=== PATIENT | male | born 1945 | race Caucasian/White ===

== ENCOUNTER 2019-06-28 02:19 | Outpatient (CLI) | payer MEDICARE, BC, SELFPAY ==
[2019-06-28 11:36] LABS: Anion Gap 11.1 mmol/L (3-11); BUN 16 mg/dL (7-18); CO2 26.9 mmol/L (21.0-32.0); CREATININE 1.05 mg/dL (0.70-1.30); Calcium 8.6 mg/dL (8.5-10.1); Chloride 104 mmol/L (98-107); Glucose 112 mg/dL (70-100); Sodium 142 mmol/L (136-145)
== END 2019-06-28 02:39 ==
PROVIDERS: PCP Family Medicine; Visit Provider Family Medicine
DX: I10 Essential (primary) hypertension (principal)
CPT/HCPCS: 36415; 80048

== ENCOUNTER 2020-07-03 10:10 | Outpatient (CLI) | payer MEDICARE, BC, SELFPAY ==
[2020-07-03 12:50] LABS: Anion Gap 7.8 mmol/L (3-11); BUN 18 mg/dL (7-18); CO2 29.2 mmol/L (21.0-32.0); CREATININE 0.97 mg/dL (0.70-1.30); Calcium 9.1 mg/dL (8.5-10.1); Calculated LDL 134 mg/dL (<100); Chloride 104 mmol/L (98-107); Cholesterol 200 mg/dL (<200); Glucose 116 mg/dL (74-106); HDL Cholesterol 47 mg/dL (40-60); Potassium 4.4 mmol/L (3.5-5.1); Sodium 141 mmol/L (136-145); Triglyceride 96 mg/dL (<150)
== END 2020-07-03 10:30 ==
PROVIDERS: PCP Nurse Practitioner; Visit Provider Family Medicine
DX: I10 Essential (primary) hypertension (principal); E66.9 Obesity, unspecified
CPT/HCPCS: 36415; 80048; 80061

== ENCOUNTER 2020-12-25 01:58 | Outpatient (CLI) | payer MEDICARE, BC, SELFPAY ==
[2020-12-25 12:45] LABS: HCT 46.2 % (40.0-50.0); HGB 15.5 g/dL (13.5-17.5); MCH 32.2 pg (27.0-33.0); MCHC 33.5 % (32.0-36.0); MCV 95.9 fL (80-95); MPV 10.4 fL (8.0-11.0); Platelet Count 241 10^3/uL (130-400); RBC 4.82 10^6/uL (4.36-5.78); RDW 11.6 % (11.8-14.1); RDW-SD 40.7 fL; WBC 6.01 10^3/uL (4.4-10.8)
[2020-12-25 13:00] LABS: Iron 48 ug/dL (65-175)
[2020-12-25 13:12] LABS: Ferritin 247 ng/mL (26-388)
== END 2020-12-25 01:59 | disposition home or self-care (01) ==
LOC: LOS 01:58
DX: D50.9 Iron deficiency anemia, unspecified (principal); R42 Dizziness and giddiness
CPT/HCPCS: 36415; 85027; 82728; 83540

== ENCOUNTER 2021-09-28 13:25 | Outpatient (REF) | payer MEDICARE, BC, SELFPAY ==
[2021-09-28 13:23] LABS: ALT 27 U/L (16-63); AST 19 U/L (15-37); Albumin 3.6 g/dL (3.4-5.0); Alkaline Phosphatase 68 U/L (46-116); Anion Gap 8.4 mmol/L (3-11); BUN 22 mg/dL (7-18); Bilirubin, Total 0.8 mg/dL (0.2-1.0); CO2 27.6 mmol/L (21.0-32.0); Calcium 8.9 mg/dL (8.5-10.1); Chloride 102 mmol/L (98-107); Ferritin 198 ng/mL (26-388); Glucose 111 mg/dL (74-106); Sodium 138 mmol/L (136-145); Total Protein 7.3 g/dL (6.4-8.2)
[2021-09-28 13:41] LABS: Iron 106 ug/dL (65-175)
[2021-09-28 22:40] LABS: PSA, Screening 0.9 ng/mL (0.0-6.5)
== END 2021-09-28 13:26 | disposition home or self-care (01) ==
LOC: LBN 13:25
DX: I10 Essential (primary) hypertension (principal); E61.1 Iron deficiency; E63.8 Other specified nutritional deficiencies; Z12.5 Encounter for screening for malignant neoplasm of prostate; Z80.42 Family history of malignant neoplasm of prostate
CPT/HCPCS: 80053; 84153; 82728; 83540

== ENCOUNTER 2022-11-07 08:28 | Outpatient (CLI) | payer MEDICARE, SELFPAY ==
[2022-11-07 12:19] LABS: HCT 46.1 % (40.0-50.0); HGB 15.7 g/dL (13.5-17.5); MCH 32.4 pg (27.0-33.0); MCHC 34.1 % (32.0-36.0); MCV 95 fL (80-95); Platelet Count 239 10^3/uL (130-400); RBC 4.84 10^6/uL (4.36-5.78); RDW 12.3 % (11.8-14.1); RDW-SD 43.7 fL
[2022-11-07 12:26] LABS: Iron 69 ug/dL (65-175)
[2022-11-07 12:33] LABS: Anion Gap 8.2 mmol/L (3-11); BUN 16 mg/dL (7-18); CO2 26.8 mmol/L (21.0-32.0); CREATININE 1.1 mg/dL (0.70-1.30); Calcium 9.1 mg/dL (8.5-10.1); Chloride 103 mmol/L (98-107); Estimated GFR 69.57 (mL/min/1.73m2); Glucose 113 mg/dL (74-106); Potassium 4.1 mmol/L (3.5-5.1); Sodium 138 mmol/L (136-145)
[2022-11-07 15:23] LABS: Hemoglobin A1C 5.7 % (<5.7)
[2022-11-07 15:58] LABS: Lab Add On Test DONE
== END 2022-11-07 08:29 | disposition home or self-care (01) ==
LOC: LOS 08:29
PROVIDERS: PCP Nurse Practitioner Family; Referring Provider Nurse Practitioner Family; Visit Provider Nurse Practitioner Family
DX: E61.1 Iron deficiency (principal); I10 Essential (primary) hypertension; R73.9 Hyperglycemia, unspecified
CPT/HCPCS: 36415; 80048; 85027; 83036; 83540

== ENCOUNTER 2023-09-10 23:42 | Observation (INO) | payer MEDICARE, SELFPAY ==
[2023-09-10 23:45] VITALS: BP 172/94; PULSE 73; RESP 18; TEMP 36.4; O2SAT 97
--- NOTE | 2023-09-10 23:45 | RT.EKG_ITS ---
APPROVED REPORT Exam: Resting ECG Reason for Exam: abd pain Patient Location: E HR:74 bpm ECG Measurements Heart Rate 74 AXIS TX 200 P 51 QRSd 97 QRS 51 QT 392 T 40 QTc 435 Conclusion Sinus rhythm 74 normal axis no acute ischemic change
[2023-09-10 23:47] VITALS: O2SAT 96
[2023-09-10 23:48] VITALS: BP 172/94; PULSE 75; O2SAT 97
[2023-09-10 23:50] VITALS: PULSE 73; RESP 11; O2SAT 96
[2023-09-11] VITALS (57 sets, daily range): BP systolic 122–177; BP diastolic 68–90; PULSE 66–89; RESP 11–26; TEMP 36.3–37.6; O2SAT 90–98; BMI 31.6
--- NOTE | 2023-09-11 00:02 | ED.GENADUL_ITS ---
Discharge Plan Disposition Patient Disposition: Admit to [facility] Condition: Good Discharge Details Chief Complaint: Abd Prob Clinical Impression: Acute cholecystitis, Abdominal pain Primary Care Provider: Frankie Cruz ED Provider: Claudia Fong Home Meds and New Rx's Prescriptions: No Action timolol 0.5 % drops 1 drp OP BID amlodipine 5 mg tablet 5 mg PO DAILY Qty: 90 1RF latanoprost 2.5 ML drops 1 drp OU HS ferrous sulfate 325 mg (65 mg iron) tablet 325 mg PO Q OTHER DAY Qty: 90 3RF hydrochlorothiazide 25 mg tablet 25 mg PO DAILY Qty: 90 1RF Medical Decision Making Emergent evaluation of abdominal pain. Initial differential includes pancreatitis, cholecystitis, cholelithiasis, anginal equivalent. Patient reports improvement in his symptoms. He does have an benign abdominal exam. He is slightly hypertensive. His EKG is without acute ischemic changes. Initial plan to check blood work, cardiac enzymes. Given his age and associated risk factors, will get a CT scan to evaluate for other etiologies of pain. 1240: Urinalysis does have moderate blood. This increases my suspicion for renal stone. Will change CT to noncontrast. Lab work reviewed, there is mild leukocytosis, no anemia. Creatinine slightly elevated but at baseline for this patient. 0220: CT scan obtained and reviewed. There is acute cholecystitis. General surgery consulted and will admit the patient to their service for further surgical management. The patient reports that his pain is resolved at this time. He is updated on the plan. I will give a dose of cefepime as he is allergic to penicillin. Medical Records Medical records reviewed: Yes I reviewed the patient's medical records. Lab Data Lab results reviewed: Yes I reviewed the patient's lab results. HPI General Date/Time Provider Initiated Documentation: 09/10/23 23:56 . Limitations to Documentation: no limitations . Information obtained by: patient and family () . HPI Narrative: 78-year-old gentleman with past medical history of hypertension presents for evaluation of 2 hours of abdominal pain. Reports the pain was located at the top of his abdomen and in the right upper quadrant. Not associated with nausea or vomiting. Denies any chest pain. Symptoms were constant. Reports that he felt like he would feel better if he burped. He took some [place] without significant relief. But he does state that he is starting to feel better now. Reports that he is just not been feeling well for the last couple of weeks, not having any abdominal pain, but just feeling a little fatigued and not his self. Related Data Home Medications Medication Instructions Recorded Confirmed latanoprost 0.005 % eye drops 1 drp OU HS 02/27/14 09/10/23 timolol 0.5 % eye drops 1 drp ophthalmic (eye) BID 06/27/19 09/10/23 ferrous sulfate 325 mg (65 mg 325 mg PO Q OTHER DAY #90 tabs 02/10/22 09/10/23 iron) tablet amlodipine 5 mg tablet 5 mg PO DAILY #90 tabs 05/10/23 09/10/23 hydrochlorothiazide 25 mg tablet 25 mg PO DAILY #90 tabs 08/14/23 09/10/23 Previous Rx's Medication Instructions Recorded ferrous sulfate 325 mg (65 mg 325 mg PO Q OTHER DAY #90 tabs 02/10/22 iron) tablet amlodipine 5 mg tablet 5 mg PO DAILY #90 tabs 05/10/23 hydrochlorothiazide 25 mg tablet 25 mg PO DAILY #90 tabs 08/14/23 Allergies Allergy/AdvReac Type Severity Reaction Status Date / Time Penicillins Allergy Unknown Verified 09/10/23 23:49 General Stated Complaint: Abd Prob MAXINE: 3 PFSH All Active Problems (Updated 09/11/23 @ 02:25 by Claudia Fong MD) Abdominal pain (Acute) Acute cholecystitis (Acute) Varicose veins of lower extremity (Acute) Internal hemorrhoids without complication (Acute 03/22/16) Essential hypertension (Acute 02/26/14) Carpal tunnel syndrome (Acute) R>L Increased body mass index (BMI) (Acute) Iron deficiency (Acute) Shoulder pain, bilateral (Acute) Nail dystrophy (Acute) Pain, foot (Acute) Hyperglycemia (Acute) Surgical History History of appendectomy History of cataract removal with insertion of prosthetic lens Status post hip replacement Status post inguinal hernia repair Family History Mother , age 68 Ovarian cancer Father , age 76 Essential hypertension Heart disease Myocardial infarction Prostate cancer Brother Diabetes Morbid obesity Essential hypertension Heart disease Maternal Grandfather No problems noted. Paternal Grandfather Heart disease Maternal Grandmother Essential hypertension Heart disease Stroke Paternal Grandmother No problems noted. Son No problems noted. Son No problems noted. 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, 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 Pets and animals: Yes Pets and animals: dog(s) Sexually active: Yes Do you think of yourself as: straight/heterosexual Current gender identity: male 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 [employer] What is your relationship status?: How often do you talk on the phone with friends or family?: three or more times per week How often do you get together with friends or relatives?: once per week How often do you attend alevism or uatsdin services?: decline to answer Do you belong to any clubs or organized social groups?: yes Panel score (0-1 are the most socially isolated patients): 3 What type of physical activity do you participate in: none Frequency: does not exercise Sandra/Restorationism: Buddhism Seatbelt use: always Drive 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 Peripheral pulses 2+ and equal in all extremities Brisk capillary refill in all extremities. No peripheral edema RESP: Unlabored respiratory effort, Clear to auscultation bilaterally No wheezes rales or rhonchi GI: Soft, Nontender, Nondistended, No organomegaly MSK: Extremities with full range of motion, no deformity or TTP SKIN: Warm, Dry. No rashes or lesions. NEURO: No focal neurologic deficits. Course Vital Signs Vital signs: Vital Signs Temperature 36.4 C 09/10/23 23:45 Pulse 73 09/10/23 23:45 Respiratory Rate 18 09/10/23 23:45 Blood Pressure 172/94 H 09/10/23 23:45 Pulse Oximetry 97 09/10/23 23:45 Temperature 36.4 C 09/10/23 23:45 Temperature Source Oral 09/10/23 23:45 Pulse 73 09/10/23 23:45 Respiratory Rate 18 09/10/23 23:45 Respiratory Effort Normal, Non-Labored 09/10/23 23:48 Blood Pressure 172/94 H 09/10/23 23:45 Blood Pressure Position Sitting 09/10/23 23:45 Pulse Oximetry 97 09/10/23 23:45 Oxygen Delivery Method Room Air 09/10/23 23:45 Oxygen Flow Rate 0 09/10/23 23:45 Pain Level 5 09/10/23 23:45 PAWSS Have you Been Recently Intoxicated or Drunk Within the Last 30 days?: No Have you Ever Experienced Previous Episodes of Alcohol Withdrawal?: No Have you ever Experienced Withdrawal Seizures?: No Have you ever Experienced Delirium Tremens(DT)s?: No Have you ever undergone Alcohol Rehabilitation Treatment (i.e, inpt ot outpatient treatment programs)?: No Have you ever Experienced Blackouts?: No Have you ever Combined Alcohol with other Downers within the last 90 days?: No Have you ever Combined Alcohol with any other Substance of Abuse during the last 90 days?: No Positive Blood Alcohol level on Presentation? [PCS.BAL]: No Evidence of Increased Autonomic Activity (i.e. HR>120, tremor, sweating, agitation, nausea)?: No Result: 0
[2023-09-11 00:24] LABS: Bilirubin Negative (Negative); Blood Moderate (Negative); Clarity Clear (Clear); Glucose Negative (Negative); Ketones Negative (Negative); Leukocyte Esterase Negative (Negative); Nitrite Negative (Negative); Specific Gravity 1.025 (1.005-1.025); Urobilinogen 0.2 mg/dL (Up to 0.2)
[2023-09-11 00:24] LABS: Abs Immature Grans 0.05 10^3/uL (0.0-0.06); Absolute Basophil Count 0.05 10^3/uL (0.0-0.2); Absolute Lymphocyte Count 1.19 10^3/uL (1.2-3.4); Absolute Monocyte Count 0.57 10^3/uL (0.1-0.8); Absolute Neutrophil Count 10.23 10^3/uL (1.2-6.7); Basophils % 0.4; Eosinophils % 0.8; HCT 45.7 % (40.0-50.0); HGB 15.4 g/dL (13.5-17.5); Immature Grans % 0.4; Lymphocytes % 9.8; MCHC 33.7 % (32.0-36.0); MCV 95 fL (80-95); MPV 9.3 fL (8.0-11.0); Monocytes % 4.7; Neutrophils % 83.9; Platelet Count 252 10^3/uL (130-400); RBC 4.81 10^6/uL (4.36-5.78); RDW 12.3 % (11.8-14.1); WBC 12.19 10^3/uL (4.4-10.8)
--- NOTE | 2023-09-11 00:30 | DI.CT_ITS ---
Exam(s) CT ABDOMEN PELVIS WO EXAM: CT ABDOMEN PELVIS WO CLINICAL HISTORY: right flank pain. TECHNIQUE: Imaging Protocol: Axial computed tomography images with coronal and sagittal reformatted images were created and reviewed. COMPARISON: No exams were available for comparison FINDINGS: ABDOMEN: Lung Bases: There is a small hiatal hernia. There is dependent atelectasis in the lung bases. Liver: Normal density. There are few tiny hypodensities in the liver. They are too small for further characterization. Gallbladder and biliary tract: There are gallstones present. There is gallbladder wall thickening. Pericholecystic fluid is seen. There is no biliary ductal dilatation. Pancreas: Normal density, no abnormal calcifications or inflammatory process. Spleen: Normal. Kidneys: Normal size, contour and axis.No radiodense stones or obstructive uropathy. No masses seen. Adrenal glands: No mass is seen. Lymph nodes: Within normal limits. Abdominal Aorta: Abdominal portion non-dilated. Atherosclerosis. PELVIS: Bladder:Symmetric distention, no gross wall thickening. Bowel: There is diverticulosis of the colon but no evidence of acute diverticulitis. There is no aniyah dence of bowel obstruction or bowel wall thickening. No evidence of appendicitis. Peritoneal cavity: No ascites, collection or mesenteric inflammatory response. No free air. Reproductive organs: The prostate gland is enlarged. Bones: Within normal limits for the patient's age. The patient has a right total hip replacement. Soft Tissues: There is a fat containing umbilical hernia. IMPRESSION: Findings consistent with acute cholecystitis with gallbladder distention, gallbladder wall thickening and pericholecystic fluid. Cholelithiasis is present. There is no biliary ductal dilatation. RADIATION DOSE DELIVERED: Total DLP DATA REPOSITORY: All CT scans at this facility are submitted to the National Radiology Data Registry (NRDR) Dose Index Registry (DIR) with the [employer] (ACR). RADIATION OPTIMIZATION: All CT scans at this facility use at least one of these dose optimization te chniques: automated exposure control; mA and/or kV adjustment per patient size (includes targeted exa ms where dose is matched to clinical indication); or iterative reconstruction.
[2023-09-11 00:39] LABS: Bacteria Rare HPF (Negative); C & S Indicated? No; Crystals Negative HPF (Negative); Epithelial Cells Rare HPF (Negative); Mucus Negative (Negative); WBC 0-2 HPF (0-5)
[2023-09-11 00:42] LABS: ALT 25 U/L (16-63); AST 18 U/L (15-37); Albumin 3.5 g/dL (3.4-5.0); Alkaline Phosphatase 62 U/L (46-116); Anion Gap 6.3 mmol/L (3-11); BUN 22 mg/dL (7-18); Bilirubin, Direct 0.1 mg/dL (0.0-0.2); Bilirubin, Total 0.5 mg/dL (0.2-1.0); CO2 30.7 mmol/L (21.0-32.0); CREATININE 1.4 mg/dL (0.70-1.30); Calcium 9.2 mg/dL (8.5-10.1); Chloride 101 mmol/L (98-107); Estimated GFR 51.77 (mL/min/1.73m2); Glucose 152 mg/dL (74-106); Potassium 3.6 mmol/L (3.5-5.1); Sodium 138 mmol/L (136-145); Total Protein 7.6 g/dL (6.4-8.2); Troponin I < 50 ng/L (<or=60)
[2023-09-11 00:48] LABS: NT-proBNP 26 pg/mL (<300)
[2023-09-11 01:04] LABS: Lipase 32 U/L (16-77)
--- NOTE | 2023-09-11 02:15 | DI.VRAD_ITS ---
PROCEDURE INFORMATION: Exam: CT Abdomen And Pelvis Without Contrast Exam date and time: 09/11/2023 1:48 AM Age: 78 years old Clinical indication: Abdominal pain; Localized; Right upper quadrant (ruq); Prior surgery; Surgery date: 6+ months; Surgery type: Appendectomy, hernia repair, hip replacement; Patient HX: Ruq pain TECHNIQUE: Imaging protocol: Computed tomography of the abdomen and pelvis without contrast. Radiation optimization: All CT scans at this facility use at least one of these dose optimization techniques: automated exposure control; mA and/or kV adjustment per patient size (includes targeted exams where dose is matched to clinical indication); or iterative reconstruction. COMPARISON: No relevant prior studies available. FINDINGS: Diaphragm: Small hiatal hernia. Liver: Liver is decreased in volume with minimal surface irregularity, suggesting cirrhosis. Gallbladder and bile ducts: Acute cholecystitis: Gallbladder is distended. There is mild wall thickening and pericholecystic inflammation. Cholelithiasis. No biliary ductal dilatation. Pancreas: Unremarkable. Spleen: Normal. Adrenal glands: Normal. No mass. Kidneys and ureters: Normal. No hydronephrosis. Stomach and bowel: Colonic diverticulosis. No diverticulitis. No bowel wall thickening or intestinal obstruction. Appendix: Normal appendix. Intraperitoneal space: Unremarkable. No pneumoperitoneum. No abscess. Vasculature: Unremarkable. Lymph nodes: Unremarkable. Urinary bladder: Unremarkable as visualized. Reproductive: Prostatomegaly. Bones/joints: Right hip prosthesis. Soft tissues: Unremarkable. IMPRESSION: 1. Acute cholecystitis: Gallbladder is distended. There is mild wall thickening and pericholecystic inflammation. Cholelithiasis. 2. Liver is decreased in volume with minimal surface irregularity, suggesting cirrhosis. Dictated and Authenticated by: Srini Smith MD. Ordering:[facility] Hetal Mack MD
[2023-09-11] MEDS: CEFEPIME 1 GM in Normal Saline 50 ML IVPB ×2 (02:30→13:30)
--- NOTE | 2023-09-11 02:31 | W.PM.HP.N ---
Date of service: 09/11/23 Time of Service: 02:32 Assessment and Plan Assessment and plan (1) Acute cholecystitis: Status: Acute Assessment and plan: I do think this is most consistent with acute cholecystitis. Especially with his gallstones, I recommended surgical removal of his gallbladder. We talked about the natural history of cholecystitis, as well is various treatment options. He seems to have a good understanding of the role of surgery here. We talked about the risks of the surgery in particular, and he was able to provide informed consent. We will continue with some fluid resuscitation for now, and plan for cholecystectomy today. History of Present Illness History of Present Illness Chief Complaint: Abdominal pain Narrative: He was 78 years old, and he comes to the emergency department last night with a chief complaint of mid epigastric and slightly right-sided subcostal pain. He tells me it started about half an hour after he ate dinner, which was camps due. He described it as sharp, and gnawing. It was fairly persistent over the next few hours. He denied any nausea or vomiting. When he came to the emergency department, he underwent CAT scan of the abdomen and pelvis that demonstrated dilated gallbladder, with gallstones. Features were consistent with acute cholecystitis. He was started on broad-spectrum antibiotics, and admitted for resuscitation. Past medical history significant for hypertension is treated with amlodipine and hydrochlorothiazide. Significant surgical history includes an inguinal hernia repair, as well as an appendectomy as a child. Review of Systems Constitutional Constitutional: Denies body ache(s), Denies difficulty sleeping, Denies fever(s), Denies lethargy and Denies poor appetite Eyes Eyes: Reports system reviewed and no additional complaints, except as documented ENT Ears, Nose, Mouth, and Throat: Reports system reviewed and no additional complaints, except as documented Cardiovascular Cardiovascular: Denies chest pain and Denies dyspnea Respiratory Respiratory: Denies chest congestion, Denies cough and Denies dyspnea Gastrointestinal Gastrointestinal: Reports abdominal pain, Reports belching, Denies change in bowel habits, Denies diarrhea and Denies vomiting Musculoskeletal Musculoskeletal: Reports system reviewed and no additional complaints, except as documented Psychiatric Psychiatric: Reports system reviewed and no additional complaints, except as documented Hematologic/Lymphatic Hematologic/Lymphatic: Denies easy bleeding and Denies easy bruising PFSH All Active Problems Abdominal pain (Acute) Acute cholecystitis (Acute) Varicose veins of lower extremity (Acute) Internal hemorrhoids without complication (Acute 03/22/16) Essential hypertension (Acute 02/26/14) Carpal tunnel syndrome (Acute) R>L Increased body mass index (BMI) (Acute) Iron deficiency (Acute) Shoulder pain, bilateral (Acute) Nail dystrophy (Acute) Pain, foot (Acute) Hyperglycemia (Acute) Surgical History History of appendectomy History of cataract removal with insertion of prosthetic lens Status post hip replacement Status post inguinal hernia repair Family History Mother , age 68 Ovarian cancer Father , age 76 Essential hypertension Heart disease Myocardial infarction Prostate cancer Brother Diabetes Morbid obesity Essential hypertension Heart disease Maternal Grandfather No problems noted. Paternal Grandfather Heart disease Maternal Grandmother Essential hypertension Heart disease Stroke Paternal Grandmother No problems noted. Son No problems noted. Son No problems noted. 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, 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 Pets and animals: Yes Pets and animals: dog(s) Sexually active: Yes Do you think of yourself as: straight/heterosexual Current gender identity: male 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 What is your relationship status?: How often do you talk on the phone with friends or family?: three or more times per week How often do you get together with friends or relatives?: once per week How often do you attend latter-day or confucianism services?: decline to answer Do you belong to any clubs or organized social groups?: yes Panel score (0-1 are the most socially isolated patients): 3 What type of physical activity do you participate in: none Frequency: does not exercise Sandra/Taoist: Islam Seatbelt use: always Drive intox or ride w/intox 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 Do you feel safe at home: Yes Do you feel safe in your relationship?: Yes Meds Allergies and Home Medications Allergies Allergy/AdvReac Type Severity Reaction Status Date / Time Penicillins Allergy Unknown Verified 09/11/23 02:44 Home Medications Medication Instructions Recorded Confirmed Type latanoprost 0.005 % eye drops 1 drp OU HS 02/27/14 09/10/23 History timolol 0.5 % eye drops 1 drp ophthalmic (eye) BID 06/27/19 09/10/23 History ferrous sulfate 325 mg (65 mg 325 mg PO Q OTHER DAY #90 tabs 02/10/22 09/10/23 Rx iron) tablet amlodipine 5 mg tablet 5 mg PO DAILY #90 tabs 05/10/23 09/10/23 Rx hydrochlorothiazide 25 mg tablet 25 mg PO DAILY #90 tabs 08/14/23 09/10/23 Rx Exam Const General: cooperative and healthy appearing Orientation: alert, awake and oriented x3 HENMT Head: normal to inspection Eyes General: appearance normal, both eyes and all related structures Neck Neck: normal visual inspection, full ROM and no lymphadenopathy Resp Effort & Inspection: normal respiratory effort Auscultation: clear to auscultation bilaterally Cardio Rate: regular rate Rhythm: regular rhythm Heart Sounds: S1 normal and S2 normal GI Inspection: normal to inspection Palpation: soft, no guarding, no hernias, no masses and tender (Right upper quadrant) Percussion: normal to percussion Skin General skin exam: no rashes or lesions noted Extrem Right lower extremity: no edema Left lower extremity: no edema Results Labs 09/11/23 00:10 09/11/23 00:10 Labs: Laboratory Results - last 24 hr 09/11/23 09/11/23 00:10 00:14 WBC 12.19 H RBC 4.81 Hgb 15.4 Hct 45.7 MCV 95 MCH 32.0 MCHC 33.7 RDW 12.3 Plt Count 252 MPV 9.3 Immature Gran % 0.4 Neutrophils % 83.9 Lymphocytes % 9.8 Monocytes % 4.7 Eosinophils % 0.8 Basophils % 0.4 Nucleated RBC % 0.0 Absolute Neutrophils 10.23 H Absolute Lymphocytes 1.19 L Absolute Monocytes 0.57 Absolute Eosinophils 0.10 Absolute Basophils 0.05 Sodium 138 Potassium 3.6 Chloride 101 Carbon Dioxide 30.7 Anion Gap 6.3 BUN 22 H Creatinine 1.4 H Est GFR (CKD-EPI 2020) 51.77 Glucose 152 H Calcium 9.2 Total Bilirubin 0.5 Conjugated Bilirubin 0.1 AST 18 ALT 25 Alkaline Phosphatase 62 Troponin I < 50 NT-Pro-B Natriuret Pep 26 Total Protein 7.6 Albumin 3.5 Lipase 32 Urine Color Yellow Urine Clarity Clear Urine pH 7.0 Ur Specific [place] 1.025 Urine Protein Negative Urine Ketones Negative Urine Blood Moderate H Urine Nitrite Negative Urine Bilirubin Negative Urine Urobilinogen 0.2 Ur Leukocyte Esterase Negative Urine RBC 10-20 H Urine WBC 0-2 Ur Epithelial Cells Rare Urine Crystals Negative Urine Bacteria Rare Urine Mucus Negative Ur Culture Indicated? No Urine Glucose Negative Last Vital Signs Temp 97.6 F 09/10/23 23:45 Pulse 73 09/10/23 23:45 Resp 18 09/10/23 23:45 BP 172/94 H 09/10/23 23:45 Pulse Ox 97 09/10/23 23:45 PAWSS Have you Been Recently Intoxicated or Drunk Within the Last 30 days?: No Have you Ever Experienced Previous Episodes of Alcohol Withdrawal?: No Have you ever Experienced Withdrawal Seizures?: No Have you ever Experienced Delirium Tremens(DT)s?: No Have you ever undergone Alcohol Rehabilitation Treatment (i.e, inpt ot outpatient treatment programs)?: No Have you ever Experienced Blackouts?: No Have you ever Combined Alcohol with other Downers within the last 90 days?: No Have you ever Combined Alcohol with any other Substance of Abuse during the last 90 days?: No Positive Blood Alcohol level on Presentation? [PCS.BAL]: No Evidence of Increased Autonomic Activity (i.e. HR>120, tremor, sweating, agitation, nausea)?: No Result: 0 Time Spent Time spent with Patient: 40-54 minutes Time was spent: preparing to see the patient(eg.review tests), obtaining and/or reviewing separately otained hiistory, referring, communicating with other health director critical care, indepentently interpreting results and counseling the patient
[2023-09-11] MEDS: Lactated Ringers 1,000 ML 75 ML IV (06:32)
[2023-09-11] MEDS: ACETAMINOPHEN 1,000 MG/100 ML BTL 400 MG IVPB (06:41)
[2023-09-11] MEDS: Timolol 0.5% 5 ML BTL OP ×2 (08:15→20:12)
[2023-09-11] MEDS: amLODIPine 5 MG TAB PO (08:15)
--- NOTE | 2023-09-11 08:32 | ANES.PREOP_ITS ---
General Info Date of Service Date Performed: 09/11/23 Height: 5 ft 10 in Weight: 100.108 kg Body Mass Index (BMI): 31.6 Surgical Procedure: Operation Date: 09/11/23 12:25 Proposed Procedure Side Surgeon p Cholecystectomy Laparoscopic James Montano MD Meds Allergies and Home Medications Allergies Allergy/AdvReac Type Severity Reaction Status Date / Time Penicillins Allergy Unknown Verified 09/11/23 02:44 Home Medication Medication Instructions Recorded latanoprost 0.005 % eye drops 1 drp OU HS 02/27/14 timolol 0.5 % eye drops 1 drp ophthalmic (eye) BID 06/27/19 ferrous sulfate 325 mg (65 mg 325 mg PO Q OTHER DAY #90 tabs 02/10/22 iron) tablet amlodipine 5 mg tablet 5 mg PO DAILY #90 tabs 05/10/23 hydrochlorothiazide 25 mg tablet 25 mg PO DAILY #90 tabs 08/14/23 Current Visit Medications: Current Medications Generic Name Dose Route Start Last Admin Trade Name Freq PRN Reason Stop Dose Admin Amlodipine Besylate 5 mg 09/11/23 08:30 09/11/23 08:15 Amlodipine 5 Mg Tab PO 5 mg DAILY YVES Administration Enoxaparin Sodium 40 mg 09/11/23 10:00 Enoxaparin 40 Mg/0.4 Ml Syr SC Q24H YVES Ferrous Sulfate 325 mg 09/11/23 08:30 Ferrous Sulfate 325 Mg Tab PO Q48H YVES Hydrochlorothiazide 25 mg 09/11/23 08:30 Hydrochlorothiazide 25 Mg Tab PO DAILY YVES Hydromorphone HCl 1 mg 09/11/23 04:42 Hydromorphone 2 Mg/Ml Syr IVP Q6H PRN PRN Ringer's Solution 1,000 mls @ 75 mls/hr 09/11/23 04:42 09/11/23 06:32 IV 75 mls/hr INFUSION YVES Administration Acetaminophen 1,000 mg in 100 mls @ 400 mls/hr 09/11/23 06:00 09/11/23 07:00 Ofirmev IVPB Infused Q8H YVES Infusion IV Miscellaneous Supplies 1 each 09/11/23 04:42 Iv Access IV DIRECTED YVES Latanoprost 0 ml 09/11/23 22:00 Latanoprost 0.005% 2.5 Ml Btl OU HS YVES Ondansetron HCl 4 mg 09/11/23 04:42 Ondansetron 4 Mg/2 Ml Vial IVP Q4H PRN PRN Sodium Chloride 0 ml 09/11/23 04:42 Normal Saline Flush 10 Ml Syr IVP PRN PRN Timolol Maleate 0 ml 09/11/23 08:30 09/11/23 08:15 Timolol 0.5% 5 Ml Btl OP 1 drp BID YVES Administration PFSH Active Problems Active Problems: Problem Status Onset Code Abdominal pain R10.9 Acute cholecystitis K81.0 Varicose veins of lower extremity I83.90 Internal hemorrhoids without complication 03/22/16 K64.8 Essential hypertension 02/26/14 I10 Carpal tunnel syndrome G56.00 Increased body mass index (BMI) R63.8 Iron deficiency E61.1 Shoulder pain, bilateral M25.511, M25.512 Nail dystrophy L60.3 Pain, foot M79.673 Hyperglycemia R73.9 Surgical History Surgical History History of appendectomy History of cataract removal with insertion of prosthetic lens Status post hip replacement Status post inguinal hernia repair Tobacco Smoking/Tobacco Use Status: Former Tobacco Use Smokeless tobacco user: chewing tobacco (rarely) Passive smoking exposure: Yes Second hand exposure: Yes Alcohol Alcohol Intake: current Alcohol intake frequency: 0-2 drinks per day Alcohol type: beer and hard liquor Substance Use Substance use: Never Substance use type: does not use Vital Signs and Lab Results Vital Signs Most Recent Vital Signs in EMR: Most Recent Vital Signs Temp Pulse Resp BP Pulse Ox 36.4 C L 74 18 136/77 96 09/11/23 08:04 09/11/23 08:04 09/11/23 08:04 09/11/23 08:04 09/11/23 08:04 Point of Care Results Point of Care Results: Finger Stick Blood Glucose 109 09/11/23 08:03 Lab Results 09/11/23 00:10 09/11/23 00:10 Blood Type / Crossmatch: 2 No Data to Display Complete Blood Count: 2 White Blood Count 12.19 10^3/uL (4.4-10.8) H 09/11/23 00:10 Red Blood Count 4.81 10^6/uL (4.36-5.78) 09/11/23 00:10 Hemoglobin 15.4 g/dL (13.5-17.5) 09/11/23 00:10 Hematocrit 45.7 % (40.0-50.0) 09/11/23 00:10 Platelet Count 252 10^3/uL (130-400) 09/11/23 00:10 Complete Metabolic Panel: 2 Sodium 138 mmol/L (136-145) 09/11/23 00:10 Potassium 3.6 mmol/L (3.5-5.1) 09/11/23 00:10 Chloride 101 mmol/L (98-107) 09/11/23 00:10 Carbon Dioxide 30.7 mmol/L (21.0-32.0) 09/11/23 00:10 BUN 22 mg/dL (7-18) H 09/11/23 00:10 Creatinine 1.4 mg/dL (0.70-1.30) H 09/11/23 00:10 Est GFR (CKD-EPI 2020) 51.77 (mL/min/1.73m2) 09/11/23 00:10 Calcium 9.2 mg/dL (8.5-10.1) 09/11/23 00:10 Albumin 3.5 g/dL (3.4-5.0) 09/11/23 00:10 Glucose 152 mg/dL (74-106) H 09/11/23 00:10 Liver Function Panel: 2 Alanine Aminotransferase (ALT/SGPT) 25 U/L (16-63) 09/11/23 00: 10 Aspartate Amino Transf (AST/SGOT) 18 U/L (15-37) 09/11/23 00:10 Coagulation Panel: 2 No Data to Display Cardiac Panel: 2 Troponin I < 50 ng/L (<or=60) 09/11/23 NT-Pro-B Natriuret Pep 26 pg/mL (<300) 09/11/23 Arterial Blood Gas: 2 No Data to Display Venous Blood Gas: 2 No Data to Display Pancreas Panel: 2 Lipase 32 U/L (16-77) 09/11/23 00:10 Thyroid Panel: 2 No Data to Display Infectious Disease: 2 No Data to Display Blood Cultures: 2 No Data to Display Toxicology Panel: 2 No Data to Display Imaging and Studies Imaging and Studies Study information below may be from another EMR and interpreted by another provider. Please see original notes in EMR for more complete details. EKG Summary: 09/10/23: Exam: Resting ECG Reason for Exam: abd pain Patient Location: E HR:74 bpm ECG Measurements Heart Rate 74 AXIS NE 200 P 51 QRSd 97 QRS 51 QT 392 T40 QTc 435 Conclusion Sinus rhythm 74 normal axis no acute ischemic change Anesthesia Assessment and Plan Anesthesia History Personal History: No History of Anesthesia Complications Family History: No Family History of Anesthesia Complications Exercise Tolerance Exercise Tolerance: Metabolic Equivalents>4 Pertinent Negatives Pertinent Negatives: No Symptoms of GERD, No Major Cardiovascular Symptoms or Complaints and No Major Pulmonary Symptoms or Complaints Cardiac & Pulmonary Exam Cardiac Exam: Normal S1/S2 Heart Sounds Pulmonary Exam: Clear Bilateral Breath Sounds Implantable Cardiac Device Does patient have a Pacemaker or an ICD?: No Airway Exam Known Difficult Airway: No Mallampati Class: 2 Mouth Opening: Normal (> 3cm) Thyromental Distance: Greater than 3 cm Neck Range of Motion: Full ROM Neck Circumference: Normal Teeth Condition: Normal Dentition (Some missing) ASA Classification ASA Score: ASA 2 Emergency Case?: No NPO Status NPO Status: NPO Clears >2 hours, Solids >8 hours Anesthesia Plan Resuscitation Status: Full Code Anesthesia Technique: General Anesthesia Airway Planned: Endotracheal Tube Monitors Used: Standard Monitors
[2023-09-11] MEDS: Indocyanine green 25 MG VIAL 5 MG IVP (13:00)
[2023-09-11] MEDS: Lactated Ringers 1,000 ML 30 ML IV (13:16)
[2023-09-11] MEDS: Bupivacaine 0.25% Pres-Free 30 ML VIAL (13:44)
--- NOTE | 2023-09-11 14:45 | GB_PTH ---
PATIENT: Grady Saravia LOC: U#:[id number] AGE/SX: 78/M ROOM: 218 RE09/11/[address]: James Montano MD : 1945 BED: A DIS: 09/12/2023 SPEC #: [id number] RECD: 09/11/23 17:05 STATUS: CORDELL REQ #: [id number] SONY: 09/11/23 14:[address]: James Montano DEPT: Surgical Specimen RECD BY: Maura Fischer ENTERED: 09/11/23 17:06 SP TYPE: GB OTHR DR: Frankie Henry DNP Tissues: 1 - GALLBLADDER Procedures: GROSS AND MICRO LEVEL 3 Comments: [id number]
--- NOTE | 2023-09-11 14:56 | ROE_ITS ---
Date of service: 09/11/23 Time of Service: 14:56 Operative Note Operative Note DATE OF PROCEDURE: 09/11/23 PRE-OP DIAGNOSIS: Acute cholecystitis POST-OP DIAGNOSIS: same PROCEDURE: Laparoscopic cholecystectomy CHIEF FUNDRAISING OFFICER: Camilo Grimaldo ANESTHESIA TYPE: General LMA/ETT Refer to Anesthesia Record ESTIMATED BLOOD LOSS: 25 PATHOLOGY: other (Gallbladder) COMPLICATIONS: None Patient was transported to: PACU Patient's condition: stable Indications: She was a 78-year-old male with acute onset of mid epigastric and right subcostal pain. CT scan was consistent with acute cholecystitis. Findings: Acute calculus cholecystitis Procedure Description: After satisfactory induction of general anesthesia, I prepped and draped the abdomen in usual fashion. Next, I began with a periumbilical incision. I dissected down to the fascia and elevated it with Karina clamps. There was an umbilical hernia, and I entered the peritoneal cavity by way of the hernia site.. Next, I passed a 12 mm operating port in the umbilical site. I secured it to the fascia with 0 Vicryl stitches. I then insufflated the peritoneal cavity. Next I inserted a 5 mm 30 degree scope and examined the underlying viscera. There was no evidence of injury created upon entry. I then placed the patient in some reverse Trendelenburg and left side down positioning. Then, with the assistance of the laparoscope, I used local anesthetic to anesthetize the midepigastric and 2 right upper quadrant port sites. Under the vision of the laparoscope, I passed 3 more 5 mm ports. I then grasped the gallbladder fundus and elevated cephalad. I began by dissecting the gallbladder infun dibulum. With the assistance of ICG green visualization, I worked in a lateral to medial fashion. There was a significant amount of inflammation and adhesions around the cystic duct. Once I skeletonized the cystic duct and cystic artery, with a satisfactory critical view of safety, I doubly clipped and divided them. I then used electrocautery to dissect the gallbladder off the gallbladder fossa. I passed the gallbladder into an Endo Catch bag and removed it by way of the umbilical site. I examined the surgical field. It was hemostatic. I then removed the 5 mm ports under the vision of the laparoscope. Finally, I removed the umbilical port site and closed the fascia with Vicryl stitches. The fascial defect had to be opened in order to accommodate the gallstones. I closed the umbilical fascial defect with interrupted Vicryl sutures in a horizontal fashion. sites were irrigated, and the skin was closed with subcuticular stitches. Bandages were applied, patient was awakened from anesthesia, and transferred to the recovery unit.
[2023-09-11] MEDS: fentaNYL 100 MCG/2 ML VIAL IVP ×2 (15:29→15:40)
--- NOTE | 2023-09-11 16:03 | W.ANESPOSTOP ---
Postoperative Evaluation Date, Time and Location Date Performed: 09/11/23 Time Performed: 16:03 Patient Location: PACU Vital Signs Most Recent Imported Vital Signs: Most Recent Vital Signs Temp Pulse Resp BP Pulse Ox 36.5 C 71 16 141/81 H 96 09/11/23 15:40 09/11/23 15:55 09/11/23 15:55 09/11/23 15:55 09/11/23 15:55 Pain Score Most Recent Pain Score: Most Recent Pain Score Pain Level 4 09/11/23 15:55 Assessment Mental Status: Awake (Alert & Oriented to Patient Baseline) Airway and Respiratory Function: Patent airway with normal (patient baseline) respiratory exam Cardiovascular Function: Hemodynamically Stable Hydration Status: Adequately Hydrated Nausea & Vomiting: No Nausea or Vomiting Pain: Pain is tolerable per patient Peripheral Nerve Block: Patient did not receive a nerve block
[2023-09-11] MEDS: hydroCHLOROthiazide 25 MG TAB PO (17:55)
[2023-09-11] MEDS: Acetaminophen 325 MG TAB 650 MG PO (20:12)
[2023-09-11] MEDS: Latanoprost 0.005% 2.5 ML BTL OU (20:44)
[2023-09-12] MEDS: Acetaminophen 325 MG TAB 650 MG PO (03:20)
[2023-09-12 03:21] VITALS: BP 147/78; PULSE 80; RESP 18; TEMP 36.5; O2SAT 93
--- NOTE | 2023-09-12 07:36 | W.PM.DS.N ---
Date of service: 09/12/23 Time of Service: 07:37 DS: Diagnosis Discharge Diagnosis (1) Acute cholecystitis: Status: Acute Discharge Plan Disposition Condition: Good Condition: Improving Discharge Details Reason For Visit: Acute cholecystitis Admit Date/Time: 09/11/23 02:31 Admit Provider: James Montano Attending Provider: James Montano Primary Care Provider: Frankie Cruz Hospital Course Hospital Course: see addendum Home Meds and New Rx's Prescriptions: No Action timolol 0.5 % drops 1 drp OP BID amlodipine 5 mg tablet 5 mg PO DAILY Qty: 90 1RF latanoprost 2.5 ML drops 1 drp OU HS ferrous sulfate 325 mg (65 mg iron) tablet 325 mg PO Q OTHER DAY Qty: 90 3RF hydrochlorothiazide 25 mg tablet 25 mg PO DAILY Qty: 90 1RF Discharge Instructions Additional Instructions: Care after Gallbladder Surgery -Pain control: ?For the first 72 hours after surgery, take your pain meds continuously, and not just when you have pain.?? Alternate Tylenol 1000mg by mouth every 8 hours, and Ibuprofen 600mg every 6 hours.? Make sure you take ibuprofen with food and not on an empty stomach.? ??Use the tramadol for breakthrough pain- pain that is greater than a 7. ?- Use ICE! Ice really helps to keep the swelling down, and swelling causes pain. ??Twenty minutes on, and then off, continuously for the first 72hours.? After the first 72hrs, you can just use the Tylenol, ibuprofen or Celebrex, and ice, when you have pain.?? If you are taking narcotic pain medication, follow the instructions on the label and do not drive. Pain medications can make you very constipated. Make sure you are moving your bowels daily. If not, take Miralax. - Anesthesia makes you very constipated.? Take a dose of Miralax the morning after surgery. ? Use an ice bag for the first 72 hours. This helps to decrease swelling, which causes pain. It is normal to be more sore/painful and swollen towards the end of the day and first thing in the morning. ? Gallbladder surgery can make you very nauseated; use Zofran for nausea, for the first 24 hours. The nausea generally stops after 24 hours. ? Use Miralax or prune juice to prevent constipation (this is a particular side effect of pain medication and anesthesia). Do not allow yourself to become constipated. ? Avoid fatty or greasy foods; introduce these slowly, with care, after about 1 month. High-fat foods include: ? Foods that are fried, like Turkish fries and potato chips ? High-fat meats, such as bill, bologna, sausage, ground beef, and ribs, pork products ? High-fat dairy products, such as cheese, ice cream, cream, whole milk, and sour cream ? Pizza ? Foods made with lard or butter ? Creamy soups or sauces ? Meat gravies ? Chocolate ? Oils, such as palm and coconut oil ? Skin of chicken or turkey ? Nuts and nut butters ? Avocadoes ? Start out eating very small, bland amounts of food. Do not take pain pills on an empty stomach. - You will notice purple discoloration around the incisions.? This is the ?skin glue?.? This will wear off on its own.? It is OK to shower after 24hrs.? You do not need to cover the incisions. -You should walk frequently, gradually, increasing the distance. You may climb stairs, just go slowly. ? Do not go swimming or sit in a hot tub for two weeks. ? There are no stitches to remove. ? Do not drive your car x72hrs and then only if you have no pain and can move freely. Do not drive if you are taking pain narcotic pain medications. ? You may resume sexual activity whenever pain and soreness subside, usually in 2 weeks. ? Do no lift anything over 5 lbs. for two weeks. ? You may return to work in one week, or when you feel able, provided you do not have to do any heavy lifting or prolonged standing. ? You should return to Dr. Montano office for a post-op appointment about two weeks after surgery. A follow-up should have been scheduled for you already.? If there is not, please call the Surgical [facility] at: [phone] to schedule an appointment. My Medications for pain and nausea are: Tylenol/ibuprofen ?ultram When to Call the Office: ? If the incision becomes red or swollen, or there is more than a little drainage from it. ? If you develop a temperature higher than 100.5 F. ? If your eyes turn yellow ? Vomiting and can?t keep fluids down Activity:: see above Equipment/Supplies:: No Equipment Needed Diet:: low fat DS: Summary Time Spent with Patient providing and/or coordinating discharge services: Less than 30 minutes Status at Discharge Functional status at discharge: independent ambulation Overall status at discharge: patient is progressing back to baseline Mental Status: mental status grossly normal Speech and Movement: speech and movement normal Mood: congruent mood Affect: normal affect Exam Psych Mental Status: mental status grossly normal Speech and Movement: speech and movement normal Mood: congruent mood Affect: normal affect DS: Data Vitals/I&O Vitals and I&O: Vital Signs Temperature 36.5 C 09/12/23 03:21 Temperature Source Tympanic 09/12/23 03:21 Pulse 80 09/12/23 03:21 Pulse Rhythm Regular 09/11/23 21:36 Pulse 82 09/11/23 04:10 Respiratory Rate 18 09/12/23 03:21 Respiratory Effort Normal, Non-Labored 09/11/23 21:36 Respiratory Depth Normal 09/11/23 21:36 Respiratory Pattern Normal 09/11/23 21:36 Blood Pressure 147/78 H 09/12/23 03:21 Blood Pressure Mean 107 09/11/23 04:01 Blood Pressure Position Supine 09/11/23 02:43 Pulse Oximetry 93 09/12/23 03:21 Respiratory End-tidal CO2 32 09/11/23 15:40 Oxygen Delivery Method Room Air 09/12/23 03:21 Oxygen Flow Rate 0 09/12/23 03:21 Pain Level 3 09/12/23 03:21 Comment Nurse notified about temp. 09/11/23 19:58 Intake & Output 09/11/23 09/11/23 09/12/23 11:59 23:59 11:59 Intake Total 150 / 1950 1800 / 1950 300 / 300 Output Total 1275 / 1275 Balance 150 / 675 525 / 675 300 / 300 Weight 100.108 kg Intake: IV 150 / 1950 1800 / 1950 Oral 300 / 300 Output: Urine 1275 / 1275 Other: Urine Color Yellow Yellow Yellow Urine Appearance Clear Clear Clear Urine Odor None Comment pT also had another output at 19:00 of 275, clear yellow. Emesis Description None Voiding Methods Toilet Urinal Toilet PFSH All Active Problems Abdominal pain (Acute) Acute cholecystitis (Acute) Varicose veins of lower extremity (Acute) Internal hemorrhoids without complication (Acute 03/22/16) Essential hypertension (Acute 02/26/14) Carpal tunnel syndrome (Acute) R>L Increased body mass index (BMI) (Acute) Iron deficiency (Acute) Shoulder pain, bilateral (Acute) Nail dystrophy (Acute) Pain, foot (Acute) Hyperglycemia (Acute) Surgical History History of appendectomy History of cataract removal with insertion of prosthetic lens Status post hip replacement Status post inguinal hernia repair Family History Mother , age 68 Ovarian cancer Father , age 76 Essential hypertension Heart disease Myocardial infarction Prostate cancer Brother Diabetes Morbid obesity Essential hypertension Heart disease Maternal Grandfather No problems noted. Paternal Grandfather Heart disease Maternal Grandmother Essential hypertension Heart disease Stroke Paternal Grandmother No problems noted. Son No problems noted. Son No problems noted. 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[employer], 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 Pets and animals: Yes Pets and animals: dog(s) Sexually active: Yes Do you think of yourself as: straight/heterosexual Current gender identity: male 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 What is your relationship status?: How often do you talk on the phone with friends or family?: three or more times per week How often do you get together with friends or relatives?: once per week How often do you attend sikh or pentecostalism services?: decline to answer Do you belong to any clubs or organized social groups?: yes Panel score (0-1 are the most socially isolated patients): 3 What type of physical activity do you participate in: none Frequency: does not exercise Sandra/Episcopal: Anabaptism Seatbelt use: always Drive intox or ride w/intox local combination truck driver: No Do you feel safe at home: Yes Do you feel safe in your relationship?: Yes Time Spent with Patient Time Spent with Patient: <45 minutes Time was spent: preparing to see the patient(eg.review tests), referring, communicating with other health tire care manager, indepentently interpreting results and care coordination
[2023-09-12 08:02] VITALS: BP 159/71; PULSE 80; RESP 17; TEMP 36.8; O2SAT 94
[2023-09-12] MEDS: amLODIPine 5 MG TAB PO (08:10)
[2023-09-12] MEDS: hydroCHLOROthiazide 25 MG TAB PO (08:10)
[2023-09-12] MEDS: Timolol 0.5% 5 ML BTL OP (08:11)
--- NOTE | 2023-09-13 06:43 | W.PM.PROGNOT ---
Date of Service Date of service: 09/12/23 Time of Service: 07:00 Assessment and Plan Assessment and plan (1) Acute cholecystitis: Status: Resolved Assessment and plan: Postop day #1 status post laparoscopic cholecystectomy Tolerating regular diet Pain is very well controlled Encouraged ambulation and sitting in the chair throughout the morning. Discussed restrictions with his physical activity at home upon discharge. Discharge home later today. Subjective Subjective Interval history since last seen: Arrived with patient reporting that he is feeling much improved. He states that he is tolerating clear liquids very well and he is eager to go home. He denies any nausea or vomiting. He denies any fevers or chills overnight. Patient verbalizes that he is intending to get out of bed and get dressed so that he can go home. Exam Const General: cooperative, healthy appearing and comfortable Orientation: alert and oriented x3 Resp Effort & Inspection: normal respiratory effort, no audible wheezes and no cough GI Inspection: normal to inspection Palpation: soft, no guarding and nontender Other: Incision sites are dressed with Band-Aids. No ecchymosis, erythema, swelling or induration noted around port sites. Objective Last Vital Signs Temp 36.8 C 09/12/23 08:02 Pulse 80 09/12/23 08:02 Resp 17 09/12/23 08:02 BP 159/71 H 09/12/23 08:02 Pulse Ox 94 09/12/23 08:02 PAWSS Have you Been Recently Intoxicated or Drunk Within the Last 30 days?: No Have you Ever Experienced Previous Episodes of Alcohol Withdrawal?: No Have you ever Experienced Withdrawal Seizures?: No Have you ever Experienced Delirium Tremens(DT)s?: No Have you ever undergone Alcohol Rehabilitation Treatment (i.e, inpt ot outpatient treatment programs)?: No Have you ever Experienced Blackouts?: No Have you ever Combined Alcohol with other Downers within the last 90 days?: No Have you ever Combined Alcohol with any other Substance of Abuse during the last 90 days?: No Positive Blood Alcohol level on Presentation? [PCS.BAL]: No Evidence of Increased Autonomic Activity (i.e. HR>120, tremor, sweating, agitation, nausea)?: No Result: 0 Time Spent with Patient Time Spent with Patient: <25 minutes Time was spent: preparing to see the patient(eg.review tests), obtaining and/or reviewing separately otained hiistory and counseling the patient
== END 2023-09-12 12:40 | disposition home or self-care (01) ==
LOC: ER 09-11 04:32 → MS 09-11 07:35
PROVIDERS: Admitting Provider Surgery; Emergency Provider Emergency Medicine; PCP Nurse Practitioner Family; Visit Provider Surgery
PROC: 0FT44ZZ Resection of Gallbladder, Percutaneous Endoscopic Approach (ICD-10-PCS; CPT 47562; principal; 2023-09-11 12:15)
DX: K80.13 Calculus of gallbladder with acute and chronic cholecystitis with obstruction (principal); K64.8 Other hemorrhoids; E61.1 Iron deficiency; I10 Essential (primary) hypertension
CPT/HCPCS: 47562; 80053; 80076; 83690; 93005; 96365; 96375; 99223; 99285; 74176; 81003; 81015; 83880; 84484; 85025; 88304; 93010; G0378; J0131; J1100; J2405; J2704; J3010

== ENCOUNTER → 2023-09-27 09:55 | Outpatient (BNVA) | payer MEDICARE, SELFPAY | PROVIDERS: PCP Nurse Practitioner Family; Referring Provider Nurse Practitioner Family; Visit Provider Surgery | DX: Z48.815 Encounter for surgical aftercare following surgery on the digestive system (principal); K81.0 Acute cholecystitis ==

== ENCOUNTER 2023-11-08 10:20 | Outpatient (REF) | payer MEDICARE, SELFPAY ==
[2023-11-08 13:05] LABS: HCT 46.7 % (40.0-50.0); HGB 15.8 g/dL (13.5-17.5); MCH 31.9 pg (27.0-33.0); MCHC 33.8 % (32.0-36.0); MCV 94 fL (80-95); MPV 10.4 fL (8.0-11.0); Platelet Count 220 10^3/uL (130-400); RBC 4.95 10^6/uL (4.36-5.78); RDW 12.4 % (11.8-14.1); RDW-SD 43.3 fL; WBC 6.61 10^3/uL (4.4-10.8)
[2023-11-08 13:13] LABS: Iron 86 ug/dL (65-175)
[2023-11-08 13:14] LABS: ALT 28 U/L (16-63); AST 21 U/L (15-37); Albumin 3.4 g/dL (3.4-5.0); Alkaline Phosphatase 63 U/L (46-116); Anion Gap 6.7 mmol/L (3-11); BUN 20 mg/dL (7-18); Bilirubin, Total 0.6 mg/dL (0.2-1.0); CO2 30.3 mmol/L (21.0-32.0); Chloride 104 mmol/L (98-107); Estimated GFR 77.52 (mL/min/1.73m2); Glucose 118 mg/dL (74-106); Potassium 3.5 mmol/L (3.5-5.1); Sodium 141 mmol/L (136-145)
== END 2023-11-08 10:21 | disposition home or self-care (01) ==
LOC: LBN 10:20
PROVIDERS: PCP Nurse Practitioner Family; Visit Provider Nurse Practitioner Family
DX: E78.00 Pure hypercholesterolemia, unspecified (principal); E61.1 Iron deficiency
CPT/HCPCS: 80053; 85027; 83540

== ENCOUNTER → 2023-11-30 09:12 | Outpatient (BNVA) | payer MEDICARE, SELFPAY | PROVIDERS: PCP Nurse Practitioner Family; Referring Provider Nurse Practitioner Family; Visit Provider Podiatrist | DX: B35.1 Tinea unguium (principal); L60.3 Nail dystrophy; L60.0 Ingrowing nail; M79.671 Pain in right foot; M79.672 Pain in left foot | CPT/HCPCS: 99214 ==

== ENCOUNTER → 2023-12-07 08:03 | Outpatient (BNVA) | payer MEDICARE, SELFPAY | PROVIDERS: PCP Nurse Practitioner Family; Referring Provider Nurse Practitioner Family; Visit Provider Podiatrist | DX: L60.0 Ingrowing nail (principal); B35.1 Tinea unguium; M79.671 Pain in right foot | CPT/HCPCS: 11750 ==

== ENCOUNTER → 2023-12-26 08:01 | Outpatient (BNVA) | payer MEDICARE, SELFPAY | PROVIDERS: PCP Nurse Practitioner Family; Referring Provider Nurse Practitioner Family; Visit Provider Podiatrist | DX: L60.0 Ingrowing nail; B35.1 Tinea unguium; M79.672 Pain in left foot | CPT/HCPCS: 11750 ==

== ENCOUNTER → 2024-01-18 08:24 | Outpatient (BNVA) | payer MEDICARE, SELFPAY | PROVIDERS: PCP Nurse Practitioner Family; Referring Provider Nurse Practitioner Family; Visit Provider Podiatrist | DX: L60.0 Ingrowing nail; B35.1 Tinea unguium; M79.671 Pain in right foot; M79.672 Pain in left foot | CPT/HCPCS: 99213 ==

== ENCOUNTER → 2024-05-16 07:53 | Outpatient (BNVA) | payer MEDICARE, SELFPAY | PROVIDERS: PCP Nurse Practitioner Family; Referring Provider Nurse Practitioner Family; Visit Provider Podiatrist | DX: B35.1 Tinea unguium (principal); M79.671 Pain in right foot; M79.672 Pain in left foot | CPT/HCPCS: 99213 ==

== ENCOUNTER → 2024-09-19 08:03 | Outpatient (BNVA) | payer MEDICARE, SELFPAY | PROVIDERS: PCP Nurse Practitioner Family; Referring Provider Nurse Practitioner Family; Visit Provider Podiatrist | DX: B35.1 Tinea unguium (principal); M79.671 Pain in right foot; M79.672 Pain in left foot | CPT/HCPCS: 99213 ==

== ENCOUNTER → 2024-10-31 07:51 | Outpatient (BNVA) | payer MEDICARE, SELFPAY | PROVIDERS: PCP Nurse Practitioner Family; Referring Provider Nurse Practitioner Family; Visit Provider Podiatrist | DX: B35.1 Tinea unguium (principal); L60.3 Nail dystrophy | CPT/HCPCS: 99213 ==

== ENCOUNTER 2024-11-19 15:26 | Outpatient (REF) | payer MEDICARE, SELFPAY ==
[2024-11-19 13:50] LABS: ALT 23 U/L (16-63); AST 18 U/L (15-37); Albumin 3.7 g/dL (3.4-5.0); Alkaline Phosphatase 69 U/L (46-116); Anion Gap 7.4 mmol/L (3-11); BUN 20 mg/dL (7-18); Bilirubin, Total 0.68 mg/dL (0.2-1.0); CO2 30.6 mmol/L (21.0-32.0); CREATININE 1.1 mg/dL (0.70-1.30); Calcium 9.1 mg/dL (8.5-10.1); Calculated LDL 128 mg/dL (<100); Chloride 100 mmol/L (98-107); Cholesterol 194 mg/dL (<200); Estimated GFR 68.71 (mL/min/1.73m2); Glucose 102 mg/dL (74-106); HDL Cholesterol 51 mg/dL (40-60); Potassium 3.9 mmol/L (3.5-5.1); Sodium 138 mmol/L (136-145); Total Protein 7.4 g/dL (6.4-8.2); Triglyceride 77 mg/dL (<150)
== END 2024-11-19 15:27 | disposition home or self-care (01) ==
LOC: LBN 15:26
PROVIDERS: PCP Nurse Practitioner Family; Visit Provider Nurse Practitioner Family
DX: R73.9 Hyperglycemia, unspecified (principal); E78.00 Pure hypercholesterolemia, unspecified
CPT/HCPCS: 80053; 80061

== ENCOUNTER 2025-05-20 08:29 | Outpatient (CLI) | payer MEDICARE, SELFPAY ==
[2025-05-20 12:25] LABS: Abs Immature Grans 0.02 10^3/uL (0.0-0.06); HCT 45.2 % (40.0-50.0); HGB 15.1 g/dL (13.5-17.5); Immature Grans % 0.3 %; MCH 32.0 pg (27.0-33.0); MCHC 33.4 % (32.0-36.0); MCV 96 fL (80-95); MPV 10.2 fL (8.0-11.0); Platelet Count 246 10^3/uL (130-400); RBC 4.72 10^6/uL (4.36-5.78); RDW 12.2 % (11.8-14.1); RDW-SD 43.5 fL; WBC 6.14 10^3/uL (4.4-10.8)
[2025-05-20 12:32] LABS: ESR 18 mm/hr (0-20)
[2025-05-20 12:42] LABS: ALT 20 U/L (16-63); AST 18 U/L (15-37); Albumin 3.6 g/dL (3.4-5.0); Alkaline Phosphatase 67 U/L (46-116); Anion Gap 7.3 mmol/L (3-11); BUN 13 mg/dL (7-18); Bilirubin, Total 0.6 mg/dL (0.2-1.0); CO2 27.7 mmol/L (21.0-32.0); Calcium 9.1 mg/dL (8.5-10.1); Chloride 102 mmol/L (98-107); Estimated GFR 68.29 (mL/min/1.73m2); Glucose 113 mg/dL (74-106); Potassium 3.8 mmol/L (3.5-5.1); Sodium 137 mmol/L (136-145); Total Protein 7.6 g/dL (6.4-8.2)
[2025-05-20 12:44] LABS: C-Reactive Protein < 0.50 mg/dL (<or=0.5)
[2025-05-21 10:08] LABS: Lyme Ab w Rflx to Lyme Confirm Negative (Negative)
[2025-05-23 14:10] LABS: B. miyamotoi PCR Negative (Negative); Babesia divergens/MO-1 Negative (Negative); Ehrlichia muris eauclairensis Negative (Negative)
== END 2025-05-20 08:30 | disposition home or self-care (01) ==
PROVIDERS: PCP Nurse Practitioner Family; Referring Provider Nurse Practitioner Family; Visit Provider Nurse Practitioner Family
DX: M25.50 Pain in unspecified joint (principal)
CPT/HCPCS: 36415; 80053; 85652; 87798; 85025; 86140; 86618